=== PATIENT | male | born 1935 | race Two or more races ===

== ENCOUNTER 2019-01-06 12:21 | Inpatient (IN) ==
--- NOTE | 2019-01-06 14:11 | ECG ---
Date Performed: 01/06/2019 Time Performed: 12:34:41 PTAGE: 83 years EKG: Sinus rhythm WITH FREQUENT SUPRAVENTRICULAR PREMATURE COMPLEXES BORDERLINE LEFT AXIS DEVIATION RIGHT BUNDLE BRANC H BLOCK ABNORMAL ECG NO PREVIOUS TRACING DOCTOR: Alfredo Garces Interpretating Date/Time 01/06/2019 14:11:00
--- NOTE | 2019-01-06 14:31 | ED ---
HPI General Chief Complaint: Dizziness Stated Complaint: dizziness Time Seen by Provider: 01/06/19 14:03 History of Present Illness HPI Narrative: 83 year old man with a past medical history of HTN and diabetes who presents to the ED for evaluation of dizziness and palpitations. He is Guatemalan speaking and most of the history was given through the son's translation. Patient reports dizziness in the mornings when he gets out of bed for the last three days. He denies loss of consciousness or falls associated with the dizziness. He states he's noticed his heart racing intermittently when he is laying in bed at night. He says he's had twinges of left sided chest pain that only last a few seconds and go away. He denies any pain at this time. He denies weakness, numbness or tingling. His son put him on a pulse ox monitor last night and states it showed his heart rate up in the 130s. Patient denies any history of arrhythmias or any other cardiac history. Related Data Home Medications Medication Instructions Recorded Confirmed aspirin 81 mg PO DAILY 01/06/19 01/06/19 diphenhydramine HCl [Benadryl] 50 mg PO PRN PRN 01/06/19 01/06/19 enalapril maleate 20 mg PO DAILY 01/06/19 01/06/19 metformin 500 mg PO DAILY 01/06/19 01/06/19 Allergies Allergy/AdvReac Type Severity Reaction Status Date / Time No Known Allergies Allergy Verified 01/06/19 14:56 Review of Systems ROS: all other systems reviewed are negative [facility] Medical History Medical History Diabetes (Acute) Hypertension (Acute) Spinal stenosis (Acute) Surgical History Surgical History History of back surgery (Acute) Social History Social History Smoking Status: Never smoker How Often Do You Have a Drink Containing Alcohol: Never Recent Travel in [facility] within the Last 8 Weeks: No Recent Out of Country Travel within the Last 8 Weeks: No Immunization History Tetanus Immunization: Unsure Exam Narrative Exam Narrative: GENERAL: Well-appearing in no distress. SKIN: Focused skin assessment warm/dry. HEAD: Atraumatic. Normocephalic. EYES: Pupils equal and round. No scleral icterus. No injection or drainage. ENT: No nasal bleeding or discharge. Mucous membranes pink and moist. NECK: Trachea midline. No JVD. CARDIOVASCULAR: Irregular rate and rhythm. No murmur appreciated. RESPIRATORY: No accessory muscle use. Clear to auscultation. Breath sounds equal bilaterally. GASTROINTESTINAL: Abdomen soft, non-tender, nondistended. Hepatic and splenic margins not palpable. MUSCULOSKELETAL: No obvious deformities. No clubbing. No cyanosis. No edema. Full range of motion of the upper and lower extremities bilaterally. 2+ pulses bilaterally. NEUROLOGICAL: Awake and alert. No obvious cranial nerve deficits. Motor grossly within normal limits. Normal speech. PSYCHIATRIC: Appropriate mood and affect; insight and judgment normal. Course Initial Documented Vital Signs Temperature 98.5 F 01/06/19 12:25 Pulse Rate 103 H 01/06/19 12:25 Respiratory Rate 18 01/06/19 12:25 Blood Pressure 124/71 01/06/19 12:25 Pulse Oximetry 97 01/06/19 12:25 Last Documented Vital Signs Temperature 98.5 F 01/06/19 12:25 Pulse Rate 98 H 01/06/19 15:30 Respiratory Rate 18 01/06/19 15:32 Blood Pressure 124/71 01/06/19 12:25 Pulse Oximetry 97 01/06/19 14:11 Medical Decision Making FRANSISCO Attestation FRANSISCO supervised visit: Yes Attestation: I, Dr. Zurita, have reviewed the advance practice practitioner's documentation and am in agreement, met with the patient face to face, made the diagnosis, and the medical decision making was done by me. *My assessment and Findings: - Patient is an 83-year-old male who presents the emergency room with history of diabetes and hypertension, presents the emergency with complaints of palpitation as well as dizziness. Patient reports that he has been having episodes of dizziness in the morning when he gets up from sleep, reports the dizziness only last for 3-4 minutes and resolved on its own. Reports that he also notices dizziness at nighttime when he gets up to use the bathroom. Currently denies dizzyness. Patient reports that he is also noticed palpitations, patient with no history of A. fib with RVR. Denies any chest pain or shortness of breath. Son was concerned for possible onset of new afib. EKG is consistent with new onset afib. A cardiac workup was initiated. MDM Narrative Medical decision making narrative: 83-year-old male who presents to the ED for evaluation of palpitations. Patient was properly examined and was found to have signs and symptoms consistent with appears to be new onset atrial fib in RVR. Patient did have an episode of V. tach here that was documented. I think at this time is reasonable for the patient to be admitted for further evaluation and treatment. Patient and family agree with this. Patient was admitted to Dr. Deleon who agrees admission to his service. My attending evaluate the patient himself and agrees with plan. Medical Screen Exam Complete: Yes Emergency Medical Condition: Yes Differential Diagnosis Differential Diagnosis: Atrial fibrillation versus tachyarrhythmia versus arrhythmia versus dehydration versus dizziness Medical Records Medical records reviewed: Yes I reviewed the patient's medical records. Lab Data Lab results reviewed: Yes I reviewed the patient's lab results. Result diagrams: 01/06/19 15:08 01/06/19 15:08 Lab Results 01/06/19 01/06/19 01/06/19 Range/Units 15:08 15:08 15:08 WBC 7.2 (4.0-11.0) th/mm3 RBC 4.32 L (4.50-5.90) mil/mm3 Hgb 13.9 (13.0-17.0) gm/dL Hct 39.7 (39.0-51.0) % MCV 91.7 (80.0-100.0) fL MCH 32.2 (27.0-34.0) pg MCHC 35.1 (32.0-36.0) % RDW 14.0 (11.6-17.2) % Plt Count 228 (150-450) th/mm3 MPV 7.9 (7.0-11.0) fL Neut % (Auto) 61.7 (16.0-70.0) % Lymph % (Auto) 25.1 (9.0-44.0) % [place] % (Auto) 9.9 H (0.0-8.0) % Eos % (Auto) 2.6 (0.0-4.0) % Baso % (Auto) 0.7 (0.0-2.0) % Neut # (Auto) 4.4 (1.8-7.7) th/mm3 Lymph # (Auto) 1.8 (1.0-4.8) th/mm3 [place] # (Auto) 0.7 (0.0-0.9) th/mm3 Eos # (Auto) 0.2 (0.0-0.4) th/mm3 Baso # (Auto) 0.1 (0.0-0.2) th/mm3 WBC Differential . Differential Comment Auto diff final PT 10.5 (9.8-11.6) sec INR 1.0 Ratio APTT 25.4 (23.4-31.7) sec Sodium 138 (136-145) meq/L Potassium 4.8 (3.5-5.1) meq/L Chloride 106 (98-107) meq/L Carbon Dioxide 26.9 (21.0-32.0) meq/L Anion Gap 5 (5-15) meq/L BUN 24 H (7-18) mg/dL Creatinine 1.21 (0.60-1.30) mg/dL Estimated GFR 57 L (>89) mL/min Random Glucose 108 H (74-106) mg/dL Calcium 8.4 L (8.5-10.1) mg/dL Total Bilirubin 0.5 (0.2-1.0) mg/dL AST 20 (15-37) U/L ALT 21 (12-78) U/L Alkaline Phosphatase 60 (45-117) U/L Total Creatine Kinase 137 (39-308) U/L CK-MB (CK-2) 3.4 (0.5-3.6) ng/mL Troponin I Less than 0.02 L (0.02-0.05) ng/mL Total Protein 7.6 (6.4-8.2) g/dL Albumin 3.8 (3.4-5.0) g/dL Imaging Data Attestation: I personally reviewed and interpreted this imaging study as follows : Radiologist's impression: Chest X-Ray 01/06/19 14:56 CONCLUSION: The lungs are clear. Chest CTA 01/06/19 15:07 CONCLUSION: Slight bilateral lung base atelectasis and/or infiltrate is seen without evidence for PE. ECG Data Attestation: I personally reviewed and interpreted this ECG as follows: Interpretation: EKG shows what appears to be A. fib. No sign of RVR with ventricular rates of 99 bpm. MS interval 198 ms. Discharge Plan Discharge Disposition Patient Disposition: ED Admit(ED Internal Use Only) Discharge Order Discharge Orders: ED Use Only Admit Order (Routine); Ordered 01/06/19 Ordered By: Bo Gray Discharge Details Diagnosis: Atrial fibrillation with RVR, Dizziness Physicians Team ED Provider: Heavenly Zurita ED Midlevel Provider: Bo Gray Primary Care Provider: Primary Care MartinaiMakayla Rxs /Orders / Referrals /Forms Prescriptions: No Action metformin 500 mg Tablet 500 mg PO DAILY RF: 0 enalapril maleate 20 mg Tablet 20 mg PO DAILY RF: 0 diphenhydramine HCl [Benadryl] 25 mg Capsule 50 mg PO PRN PRN (Reason: Insomnia) RF: 0 aspirin 81 mg Tablet,Chewable 81 mg PO DAILY RF: 0 Discharge Interventions Interventions: Vital Signs Last Done: 01/06/19 14:11 Status ED Status: Admitted Patient
[2019-01-06 15:37] LABS: Baso # (Auto) 0.1 th/mm3 (0.0-0.2); Baso % (Auto) 0.7 % (0.0-2.0); Eos # (Auto) 0.2 th/mm3 (0.0-0.4); Eos % (Auto) 2.6 % (0.0-4.0); Hematocrit 39.7 % (39.0-51.0); Hemoglobin 13.9 gm/dL (13.0-17.0); Lymph # (Auto) 1.8 th/mm3 (1.0-4.8); Lymph % (Auto) 25.1 % (9.0-44.0); Mean Corpuscular HGB Conc 35.1 % (32.0-36.0); Mean Corpuscular Hemoglobin 32.2 pg (27.0-34.0); Mean Corpuscular Volume 91.7 fL (80.0-100.0); Mean Platelet Volume 7.9 fL (7.0-11.0); Mono # (Auto) 0.7 th/mm3 (0.0-0.9); Mono % (Auto) 9.9 % (0.0-8.0); Neut # (Auto) 4.4 th/mm3 (1.8-7.7); Neut % (Auto) 61.7 % (16.0-70.0); Platelet Count 228 th/mm3 (150-450); Red Blood Count 4.32 mil/mm3 (4.50-5.90); White Blood Count 7.2 th/mm3 (4.0-11.0)
[2019-01-06 15:48] LABS: Activated Partial Thrombo Time 25.4 sec (23.4-31.7); Prothrombin Time 10.5 sec (9.8-11.6)
--- NOTE | 2019-01-06 15:53 | XR ---
EXAM DATE: 01/06/2019 3:51 PM EST AGE/SEX: 83 years / Male INDICATIONS: Chest discomfort. CLINICAL DATA: This is the patient's initial encounter. Patient reports that signs and symptoms have been present for 1 day and indicates a pain score of 0/10. MEDICAL/SURGICAL HISTORY: Diabetes mellitus type II. Hypertension. None. COMPARISON: No prior exams available for comparison. FINDINGS: A single AP view of the chest demonstrates the lungs to be symmetrically aerated without evidence of mass, infiltrate or effusion. The heart is upper limits normal size. Moderate tortuosity descending t horacic aorta.. Osseous structures are intact. CONCLUSION: The lungs are clear. Electronically signed by: Okmar Molina MD Board Certified Radiologist 01/06/2019 3:52 PM EST
[2019-01-06 15:59] LABS: Alanine Aminotransferase 21 U/L (12-78); Albumin 3.8 g/dL (3.4-5.0); Anion Gap 5 meq/L (5-15); Aspartate Aminotransferase 20 U/L (15-37); Blood Urea Nitrogen 24 mg/dL (7-18); Calcium 8.4 mg/dL (8.5-10.1); Carbon Dioxide 26.9 meq/L (21.0-32.0); Chloride 106 meq/L (98-107); Glomerular Filtration Rate 57 mL/min (>89); Glucose,Random 108 mg/dL (74-106); Potassium 4.8 meq/L (3.5-5.1); Sodium 138 meq/L (136-145)
[2019-01-06 16:03] LABS: Alkaline Phosphatase 60 U/L (45-117); Creatine Kinase 137 U/L (39-308); Total Protein 7.6 g/dL (6.4-8.2)
[2019-01-06 16:15] LABS: Creatine Kinase MB 3.4 ng/mL (0.5-3.6)
--- NOTE | 2019-01-06 17:08 | CT ---
EXAM DATE: 01/06/2019 5:00 PM EST AGE/SEX: 83 years / Male INDICATIONS: Dizziness for 3 days. Elevated heart rate. CLINICAL DATA: This is the patient's initial encounter. Patient reports that signs and symptoms have been present for 3 days and indicates a pain score of 0/10. MEDICAL/SURGICAL HISTORY: Diabetes. Hypertension. Spinal stenosis. . Back surgery. RADIATION DOSE: 20.0 CTDI (mGy) COMPARISON: No prior exams available for comparison. TECHNIQUE: Volumetric scanning was performed using a multi-row detector CT scanner during bolus infu michaela of 73 ml Omnipaque 350 (iohexol) nonionic water-soluble contrast as a single exam dose. The donald a was post processed with a variety of visualization algorithms including full volume maximum intensi ty projection and sliding thin slab reformation. Using automated exposure control and adjustment of the mA and/or kV according to patient size, radiation dose was kept as low as reasonably achievable t o obtain optimal diagnostic quality images. DICOM format image data is available electronically for review and comparison. FINDINGS: Slight bibasilar atelectasis and/or infiltrate is seen. There is no evidence of PE for technique. Coronary artery calcifications are seen typically seen with coronary artery disease and clinical tae elation and evaluation is suggested. Approximate 6.8 cm simple cyst is present in visualized right ki dney with small cysts in the left kidney as well. There is evidence for prior granulomatous exposure with calcified granuloma right lung. There is no pleural effusion. No appreciable pathological adenopathy is seen within the mediastinum. CONCLUSION: Slight bilateral lung base atelectasis and/or infiltrate is seen without evidence for PE. Electronically signed by: India Davies MD Board Certified Radiologist 01/06/2019 5:07 PM EST
[2019-01-06] MEDS ORDERED: Acetaminophen 325 MG Tablet PO PRN (17:56)
[2019-01-06] MEDS ORDERED: Bisacodyl 10 MG Supp RECTAL PRN (17:56)
--- NOTE | 2019-01-06 17:56 | P.HPIM ---
History of Present Illness Primary Care Physician: No Primary Care Physician Chief Complaint: Shortness of breath, dizziness History of Present Illness: The patient is a very pleasant 83 year old man with a past medical history of HTN and diabetes who presents to the ED for evaluation of dizziness and palpitations. He is Wolof speaking and most of the history was given through the son's translation. Patient reports dizziness in the mornings when he gets out of bed for the last three days. He denies loss of consciousness or falls associated with the dizziness. He states he's noticed his heart racing intermittently when he is laying in bed at night. He says he's had twinges of left sided chest pain that only last a few seconds and go away. He denies any pain at this time. He denies weakness, numbness or tingling. His son put him on a pulse ox monitor last night and states it showed his heart rate up in the 130s. Patient denies any history of arrhythmias or any other cardiac history. Review of Systems Review of Systems: all other systems reviewed are negative [facility] Medical History Medical History Diabetes (Acute) Hypertension (Acute) Spinal stenosis (Acute) Surgical History Surgical History History of back surgery (Acute) Family History Family History Other Heart problem Social History Social History Smoking Status: Never smoker How Often Do You Have a Drink Containing Alcohol: Never Recent Travel in [facility] within the Last 8 Weeks: No Recent Out of Country Travel within the Last 8 Weeks: No Immunization History Tetanus Immunization: Unsure Medications and Allergies Allergies Allergy/AdvReac Type Severity Reaction Status Date / Time No Known Allergies Allergy Verified 01/06/19 14:56 Home Medications Medication Instructions Recorded Confirmed Type aspirin 81 mg PO DAILY 01/06/19 01/06/19 History diphenhydramine HCl [Benadryl] 50 mg PO PRN PRN 01/06/19 01/06/19 History enalapril maleate 20 mg PO DAILY 01/06/19 01/06/19 History metformin 500 mg PO DAILY 01/06/19 01/06/19 History Physical Exam Vital signs: Vital Signs 01/06/19 12:25 01/06/19 14:11 01/06/19 15:30 Temperature 98.5 F Pulse Rate 103 H 89 98 H Respiratory Rate 18 18 Blood Pressure 124/71 Pulse Oximetry 97 97 01/06/19 15:32 Temperature Pulse Rate Respiratory Rate 18 Blood Pressure Pulse Oximetry Intake & Output 01/05/19 01/06/19 01/06/19 18:59 06:59 18:59 Weight 72.575 kg Narrative: GENERAL: Very pleasant 83-year-old male, well-nourished well- developed appears in not acute distress. SKIN: Warm and dry. HEAD: Atraumatic. Normocephalic. EYES: Pupils equal and round. No scleral icterus. No injection or drainage. ENT: No nasal bleeding or discharge. Mucous membranes pink and moist. NECK: Trachea midline. No JVD. CARDIOVASCULAR: Irregular rate and rhythm. RESPIRATORY: No accessory muscle use. Clear to auscultation. Breath sounds equal bilaterally. GASTROINTESTINAL: Abdomen soft, non-tender, nondistended. Hepatic and splenic margins not palpable. MUSCULOSKELETAL: Extremities without clubbing, cyanosis, or edema. No obvious deformities. NEUROLOGICAL: Awake and alert. No obvious cranial nerve deficits. Motor grossly within normal limits. Five out of 5 muscle strength in the arms and legs. Normal speech. PSYCHIATRIC: Appropriate mood and affect; insight and judgment normal. Results Labs CBC & Chem 7: 01/06/19 15:08 01/06/19 15:08 Imaging Impressions Chest X-Ray 01/06/19 14:56 CONCLUSION: The lungs are clear. Chest CTA 01/06/19 15:07 CONCLUSION: Slight bilateral lung base atelectasis and/or infiltrate is seen without evidence for PE. Caprini VTE Risk Assessment Caprini VTE Risk Assessment: Moderate/High Risk (score >= 2) Caprini Risk Assessment Model: Point Value = 1 Point Value = 2 Point Value = 3 Point Value = 5 Age 41-60 Minor surgery BMI > 25 kg/m2 Swollen legs Varicose veins or History of unexplained or recurrent spontaneous Oral contraceptives or hormone replacement Sepsis (< 1 month) Serious lung disease, including pneumonia (< 1 month) Abnormal pulmonary function Acute myocardial infarction Congestive heart failure (< 1 month) History of inflammatory bowel disease Medical patient at bed rest Age 61-74 Arthroscopic surgery Major open surgery (> 45 min) Laparoscopic surgery (> 45 min) Malignancy Confined to bed (> 72 hours) Immobilizing plaster cast Central venous access Age >= 75 History of VTE Family history of VTE Factor V Leiden Prothrombin [id number] Lupus anticoagulant Anticardiolipin antibodies Elevated serum homocysteine Heparin-induced thrombocytopenia Other congenital or acquired thrombophilia Stroke (< 1 month) Elective arthroplasty Hip, pelvis, or leg fracture Acute spinal cord injury (< 1 month) Prophylaxis Regimen: Total Risk Factor Score Risk Level Prophylaxis Regimen 0-1 Low Early ambulation 2 Moderate Order ONE of the following: *Sequential Compression Device (SCD) *Heparin 5000 units SQ BID 3-4 Higher Order ONE of the following medications: *Heparin 5000 units SQ TID *Enoxaparin/Lovenox 40 mg SQ daily (WT < 150 kg, CrCl > 30 mL/min) *Enoxaparin/Lovenox 30 mg SQ daily (WT < 150 kg, CrCl > 10-29 mL/min) *Enoxaparin/Lovenox 30 mg SQ BID (WT < 150 kg, CrCl > 30 mL/min) AND/OR *Sequential Compression Device (SCD) 5 or more Highest Order ONE of the following medications: *Heparin 5000 units SQ TID (Preferred with Epidurals) *Enoxaparin/Lovenox 40 mg SQ daily (WT < 150 kg, CrCl > 30 mL/min) *Enoxaparin/Lovenox 30 mg SQ daily (WT < 150 kg, CrCl > 10-29 mL/min) *Enoxaparin/Lovenox 30 mg SQ BID (WT < 150 kg, CrCl > 30 mL/min) AND *Sequential Compression Device (SCD) Assessment and Plan Plan Very pleasant 83-year-old male with past medical history of hypertension diabetes who presented with dizziness and palpitations A. fib with RVR, new onset History of hypertension History of diabetes mellitus type 2 Start metoprolol 25 mg twice daily Monitor on telemetry Do 2D echo Check TSH Consult cardiology DC Benadryl might cause arrhythmia, discussed with the patient Restart home medications as appropriate Hold metformin for now have patient on insulin while inpatient can restart metformin as outpatient. Accu-Cheks DVT prophylaxis SCDs/teds/Lovenox Discussed with the patient, family very supportive of bedside his son, ED physician
[2019-01-06] MEDS ORDERED: Dextrose 50% in Water 50 ML Vial IV.PUSH PRN (18:01)
[2019-01-06 18:37] LABS: Thyroid Stimulating Hormone 0.736 uIU/mL (0.358-3.740)
[2019-01-06] MEDS: Enoxaparin Inj 40 MG/0.4 ML Syringe SQ SCH (18:49)
[2019-01-06] MEDS: Insulin NovoLOG Aspart Correctional Sugar Inj SQ SCH (21:23)
[2019-01-06] MEDS: Senna/Docusate Sodium 8.6/50 MG Tablet PO SCH (21:37)
[2019-01-07] MEDS: Insulin NovoLOG Aspart Correctional Sugar Inj SQ SCH ×4 (08:25→21:46)
[2019-01-07] MEDS ORDERED: Metoprolol Tartrate 25 MG Tablet PO SCH (09:00)
[2019-01-07] MEDS ORDERED: Influenza (Quadrivalent) Vaccine 0.5 ML Syringe IM ONE (09:00)
[2019-01-07] MEDS: Senna/Docusate Sodium 8.6/50 MG Tablet PO SCH ×2 (09:01→21:45)
[2019-01-07 10:43] LABS: Baso % (Auto) 0.5 % (0.0-2.0); Eos # (Auto) 0.2 th/mm3 (0.0-0.4); Eos % (Auto) 2.8 % (0.0-4.0); Hematocrit 41.6 % (39.0-51.0); Hemoglobin 14.2 gm/dL (13.0-17.0); Lymph # (Auto) 1.6 th/mm3 (1.0-4.8); Lymph % (Auto) 25.3 % (9.0-44.0); Mean Corpuscular Hemoglobin 31.8 pg (27.0-34.0); Mean Corpuscular Volume 93.3 fL (80.0-100.0); Mean Platelet Volume 8.3 fL (7.0-11.0); Mono # (Auto) 0.6 th/mm3 (0.0-0.9); Mono % (Auto) 9.8 % (0.0-8.0); Neut # (Auto) 3.8 th/mm3 (1.8-7.7); Neut % (Auto) 61.6 % (16.0-70.0); Platelet Count 220 th/mm3 (150-450); Red Blood Count 4.46 mil/mm3 (4.50-5.90); White Blood Count 6.2 th/mm3 (4.0-11.0)
[2019-01-07 11:00] LABS: Calcium 8.6 mg/dL (8.5-10.1); Carbon Dioxide 22.5 meq/L (21.0-32.0); Potassium 4.6 meq/L (3.5-5.1)
[2019-01-07 12:53] LABS: Hemoglobin A1c 6.2 % (4.3-6.0)
--- NOTE | 2019-01-07 13:06 | ECHRPT ---
Indication: Atrial Fib and Flutter CONCLUSIONS Normal left ventricular size. Mild concentric left ventricular hypertrophy. The left ventricular sy stolic function is normal with an estimated ejection fraction in the range of 55-60%. No definite regional wall motion abnormalities are present. Trace mitral valve regurgitation. Trileaflet aortic valve. Mild aortic valve sclerosis is present. Mild aortic valve regurgitation. There is trace tricuspid valve regurgitation. The estimated pulmonary arterial pressure is 41 mmHg. The left atrial size is [id number] dilated. BP: / HR: Rhythm: MEASUREMENTS (Male / Female) Normal Values Technical Quality:Fair 2D ECHO LV Diastolic Diameter PLAX 5.6 cm 4.2 - 5.9 / 3.9 - 5.3 cm LV Systolic Diameter PLAX 3.3 cm IVS Diastolic Thickness 1.1 cm 0.6 - 1.0 / 0.6 - 0.9 cm LVPW Diastolic Thickness 1.1 cm 0.6 - 1.0 / 0.6 - 0.9 cm LV Relative Wall Thickness 0.4 RV Internal Dim ED PLAX 2.8 cm LVOT Diameter 1.9 cm Aortic Root Diameter 3.5 cm LA Systolic Diameter LX 5.0 cm 3.0 - 4.0 / 2.7 - 3.8 cm DOPPLER AV Peak Velocity 152.0 cm/s AV Peak Gradient 9.2 mmHg AI Peak Velocity 341.5 cm/s AI Peak Gradient 46.6 mmHg AI Pressure Half Time 589.5 ms LVOT Peak Velocity 111.0 cm/s LVOT Peak Gradient 4.9 mmHg AV Area Cont Eq pk 2.1 cm Mitral E Point Velocity 107.0 cm/s LV E' Lateral Velocity 13.3 cm/s Mitral E to LV E' Lateral Ratio 8.0 LV E' Septal Velocity 7.2 cm/s Mitral E to LV E' Septal Ratio 14.8 TR Peak Velocity 276.0 cm/s TR Peak Gradient 30.5 mmHg Right Atrial Pressure 10.0 mmHg Pulmonary Artery Systolic Pressu 40.5 mmHg Right Ventricular Systolic Press 40.5 mmHg PV Peak Velocity 95.0 cm/s PV Peak Gradient 3.6 mmHg FINDINGS LEFT VENTRICLE Normal left ventricular size. Mild concentric left ventricular hypertrophy. The left ventricular systolic function is normal with an estimated ejection fraction in the range of 55-60%. No definite regional wall motion abnormalities are present. RIGHT VENTRICLE Normal right ventricular size and systolic function. LEFT ATRIUM The left atrial size is [id number] dilated. RIGHT ATRIUM The right atrial size is normal. ATRIAL SEPTUM Normal atrial septal thickness without atrial level shunting by limited color doppler interrogation. AORTA The aortic root and proximal ascending aorta are normal in size on limited imaging. MITRAL VALVE Trace mitral valve regurgitation. AORTIC VALVE Trileaflet aortic valve. Mild aortic valve sclerosis is present. Mild aortic valve regurgitation. TRICUSPID VALVE There is trace tricuspid valve regurgitation. The estimated pulmonary arterial pressure is 41 mmHg. PULMONARY VALVE The pulmonary valve is not well visualized. VESSELS The inferior vena cava is normal in size. PERICARDIUM No pericardial effusion. Gerry Freitas MD (Electronically Signed) Final Date:07 January 2019 13:05
--- NOTE | 2019-01-07 14:23 | MB ---
cc: Leland Mora MD DATE: 01/07/2019 HISTORY OF PRESENT ILLNESS: This patient is a very pleasant 82-year-old gentleman, recently moved here from [facility], does not speak Kazakh. His son provides some of his history. Apparently, the patient had a perception of tachycardia, palpitations, with heart rates around 130, had a near-syncopal event. Otherwise, he feels well. His son says he has had several other near-syncopal events in his lifetime. The patient notes no loss of weight or loss of appetite. Denies chest pain, shortness of breath. Normally, he is active. Denies GI or bleeding, PND, or orthopnea. PAST MEDICAL HISTORY: Per history of present illness. He has a history of diabetes, hypertension, spinal stenosis, back surgery. ALLERGIES: NONE. SOCIAL HISTORY: Denies tobacco or alcohol use. MEDICATIONS IN THE HOSPITAL: 1. Aspirin 81 mg a day. 2. Vasotec 20 mg daily. 3. Lovenox 40 mg subcutaneous every 24 hours. 4. Insulin. 5. Metoprolol 25 mg b.i.d. PHYSICAL EXAMINATION: VITAL SIGNS: Temperature 98, pulse 68, respiratory rate 18, blood pressure 124/66, sats 99% on room air. GENERAL: He is alert and oriented x3, in no acute distress. NECK: Supple. No JVD. No bruit. CARDIOVASCULAR: S1, S2. No murmurs, rubs or gallops. LUNGS: Clear to auscultation bilaterally. ABDOMEN: Soft, nontender, nondistended with positive bowel sounds. EXTREMITIES: Lower extremity edema. LABORATORY DATA: EKG shows a normal sinus rhythm at 99 beats per minute, right bundle branch block, PACs. Chest CTA: Slight bilateral lung base atelectasis and/or infiltrate is seen without evidence for PE. Echocardiogram done today: EF 55-60%, trace MR, mild AI, aortic valve sclerosis, PA systolic pressure 41 mmHg, mild to moderate left atrial enlargement. Aortic valve peak gradient 9.2 mmHg. LABORATORY DATA: White count 6.2, hemoglobin 14.2, hematocrit 41.6, platelet count 220,000. INR 1. Sodium 137, potassium 4.6, chloride 106, bicarbonate 20.5, BUN 21, creatinine 1.11, glucose 107. DIAGNOSES: 1. Near syncope. 2. Hypertension. 3. Diabetes. 4. Palpitations. 5. Mild aortic valve regurgitation. DISCUSSION: At this point in time, his workup from a cardiovascular standpoint for his near-syncopal event is negative. I do think he should have carotid ultrasound. Continue telemetry monitoring and check orthostatics. MD SOTERO Mora/sb , 01:27 PM , 01:36 PM
--- NOTE | 2019-01-07 14:59 | P.PNIM ---
Physical Exam Vital signs: Vital Signs 01/06/19 15:30 01/06/19 15:32 01/06/19 18:44 Temperature Pulse Rate 98 H 87 Respiratory Rate 18 18 Blood Pressure 140/85 Pulse Oximetry 99 01/06/19 19:59 01/06/19 21:35 01/06/19 23:20 Temperature 97.1 F L 98 F Pulse Rate 79 92 H 94 H Respiratory Rate 17 16 Blood Pressure 133/75 115/54 L Pulse Oximetry 95 94 L 01/07/19 00:20 01/07/19 03:35 01/07/19 08:00 Temperature 98.0 F 97.7 F Pulse Rate 86 77 88 Respiratory Rate 17 18 Blood Pressure 130/60 150/65 H Pulse Oximetry 95 99 01/07/19 12:00 Temperature 98 F Pulse Rate 64 Respiratory Rate 18 Blood Pressure 124/66 Pulse Oximetry 99 Intake & Output 01/06/19 01/07/19 01/07/19 18:59 06:59 18:59 Intake Total 120 / 120 Output Total 275 / 275 Balance -155 / -155 Weight 72.575 kg 80.5 kg Intake: Oral 120 / 120 Output: Urine 275 / 275 Other: Date of Last Bowel Movement 01/05/19 01/07/19 # Bowel Movements 0 Weight On Admission 80.5 kg Narrative: GENERAL: Very pleasant 83-year-old male, well-nourished well- developed appears in not acute distress. CARDIOVASCULAR: regular rate and rhythm. RESPIRATORY: No accessory muscle use. Clear to auscultation. Breath sounds equal bilaterally. GASTROINTESTINAL: Abdomen soft, non-tender, nondistended. Normoactive bowel sounds MUSCULOSKELETAL: Extremities without clubbing, cyanosis, or edema. No obvious deformities. NEUROLOGICAL: Awake and alert. Motor grossly within normal limits. Five out of 5 muscle strength in the arms and legs. Normal speech. Results Labs CBC & Chem 7: 01/07/19 09:17 01/07/19 09:17 Imaging Imaging: Impressions Chest X-Ray 01/06/19 14:56 CONCLUSION: The lungs are clear. Chest CTA 01/06/19 15:07 CONCLUSION: Slight bilateral lung base atelectasis and/or infiltrate is seen without evidence for PE. 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 Progress Note: Quality VTE Deep Vein Thrombosis/Pulmonary Embolism Present on Admission: No
[2019-01-07] MEDS: Enoxaparin Inj 40 MG/0.4 ML Syringe SQ SCH (17:41)
[2019-01-07] MEDS: Metoprolol Tartrate 25 MG Tablet PO SCH (21:45)
[2019-01-08] MEDS: Insulin NovoLOG Aspart Correctional Sugar Inj SQ SCH ×4 (07:50→20:39)
[2019-01-08] MEDS: Metoprolol Tartrate 25 MG Tablet PO SCH ×2 (09:29→20:38)
[2019-01-08] MEDS: Senna/Docusate Sodium 8.6/50 MG Tablet PO SCH ×2 (09:29→20:38)
--- NOTE | 2019-01-08 12:17 | P.PNIM ---
Subjective Interval history: Patient denies any dizziness. No palpitations. No shortness of breath or chest pain. Wants to go home. Physical Exam Vital signs: Vital Signs 01/07/19 16:00 01/07/19 20:00 01/07/19 23:52 Temperature 98 F 98.3 F Pulse Rate 66 68 64 Respiratory Rate 18 16 Blood Pressure 116/58 L 132/63 Pulse Oximetry 96 95 01/08/19 00:00 01/08/19 04:00 01/08/19 08:00 Temperature 97.8 F 97.8 F Pulse Rate 89 73 86 Respiratory Rate 16 16 Blood Pressure 134/82 105/57 L Pulse Oximetry 93 L 98 01/08/19 08:30 Temperature 98.1 F Pulse Rate 87 Respiratory Rate 16 Blood Pressure 145/60 H Pulse Oximetry 96 Intake & Output 01/07/19 01/08/19 01/08/19 18:59 06:59 18:59 Intake Total 120 / 120 480 / 480 Output Total 275 / 275 Balance -155 / -155 480 / 480 Intake: Oral 120 / 120 480 / 480 Output: Urine 275 / 275 Other: # Voids 1 Date of Last Bowel Movement 01/07/19 01/07/19 01/07/19 # Bowel Movements 0 Narrative: GENERAL: Very pleasant 83-year-old male, well-nourished well- developed appears in not acute distress. CARDIOVASCULAR: regular rate and rhythm. RESPIRATORY:. Clear to auscultation. Breath sounds equal bilaterally. GASTROINTESTINAL: Abdomen soft, non-tender, nondistended. Normoactive bowel sounds MUSCULOSKELETAL: Extremities without clubbing, cyanosis, or edema. No obvious deformities. NEUROLOGICAL: Awake and alert. Motor grossly within normal limits. Five out of 5 muscle strength in the arms and legs. Normal speech. 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 daily Enalapril 10 mg p.o. daily Stop home Benadryl Follow-up with primary care physician Progress Note: Quality VTE Deep Vein Thrombosis/Pulmonary Embolism Present on Admission: No
--- NOTE | 2019-01-08 15:20 | US ---
EXAM DATE: 01/08/2019 2:48 PM EST AGE/SEX: 84 years / Male INDICATIONS: Syncope. CLINICAL DATA: This is the patient's initial encounter. Patient reports that signs and symptoms have been present for 1 day and indicates a pain score of 0/10. MEDICAL/SURGICAL HISTORY: Diabetes. Hypertension. Spinal stenosis. . Back surgery. COMPARISON: No prior exams available for comparison. VELOCITY PARAMETERS: ICA/CCA Ratio: Right 2.6 , Left 0.9 ICA: Right 77 cm/sec, Left 98 cm/sec CCA: Right 77 cm/sec, Left 114 cm/sec ECA: Right 107 cm/sec, Left 98 cm/sec Vertebral: Right 69 cm/sec antegrade, Left 41 cm/sec antegrade FINDINGS: Right Carotid: Mild to moderate arteriosclerotic plaque is visualized.The waveforms are within dom l limits. Left Carotid: Mild to moderate arteriosclerotic plaque is visualized. The waveforms are within dom l limits. Other: None. CONCLUSION: Mild to moderate visible plaque formation bilaterally. Elevated PSV ratio on the right side could ind icate a moderate stenosis. Electronically signed by: Kan Carreno MD Board Certified Radiologist 01/08/2019 3:18 PM EST
--- NOTE | 2019-01-08 17:06 | CT ---
EXAM DATE: 01/08/2019 5:00 PM EST AGE/SEX: 84 years / Male INDICATIONS: Abnormal ultrasound. CLINICAL DATA: This is the patient's initial encounter. Patient reports that signs and symptoms have been present for 2 days and indicates a pain score of 0/10. MEDICAL/SURGICAL HISTORY: Diabetes. Hypertension. Spinal stenosis. . Back RADIATION DOSE: 28.47 CTDI (mGy) COMPARISON: No prior exams available for comparison. TECHNIQUE: Volumetric scanning was performed using a multirow detector CT scanner during bolus infus ion of 100ml ml Omnipaque 350 (iohexol) nonionic water-soluble contrast as a single exam dose. The data was postprocessed with a variety of visualization algorithms including full-volume maximum inte nsity projection, multiplanar sliding thin-slab reformation, curved-planar reformation, and surface-r endering techniques. Using automated exposure control and adjustment of the mA and/or kV according t o patient size, radiation dose was kept as low as reasonably achievable to obtain optimal diagnostic quality images. DICOM format image data is available electronically for review and comparison. Percent stenosis is calculated using the diameter of the stenotic region over the diameter of the nor mal distal internal carotid artery. FINDINGS: There is mild atherosclerotic plaque at the left carotid bifurcation. There is no hemodynamically sig nificant stenosis in the common or internal carotid arteries bilaterally. The great vessel origins ar e patent. Both vertebral arteries are patent. CONCLUSION: 1. Examination within normal limits for age. No carotid stenosis. Electronically signed by: Kan Carreno MD Board Certified Radiologist 01/08/2019 5:05 PM EST
[2019-01-08] MEDS: Enoxaparin Inj 40 MG/0.4 ML Syringe SQ SCH (18:40)
[2019-01-09 05:20] VITALS: RESP 18
[2019-01-09] MEDS: Insulin NovoLOG Aspart Correctional Sugar Inj SQ SCH ×2 (08:08→15:25)
[2019-01-09 08:46] VITALS: TEMP 98.2
[2019-01-09] MEDS: Metoprolol Tartrate 25 MG Tablet PO SCH (09:30)
[2019-01-09] MEDS: Senna/Docusate Sodium 8.6/50 MG Tablet PO SCH (09:30)
[2019-01-09 13:48] VITALS: BP 110/64; O2SAT 96
--- NOTE | 2019-01-09 15:13 | P.PNIM ---
Subjective Interval history: No further dizziness, no palpitations. No chest pain. Feels better. Wants to go home. Physical Exam Vital signs: Vital Signs 01/08/19 16:00 01/08/19 19:05 01/08/19 20:00 Temperature 98.5 F Pulse Rate 97 H 80 115 H Respiratory Rate 18 Blood Pressure 128/56 L Pulse Oximetry 97 01/08/19 23:00 01/09/19 00:00 01/09/19 03:10 Temperature 97.7 F 97.8 F Pulse Rate 66 63 86 Respiratory Rate 22 18 Blood Pressure 138/88 125/65 Pulse Oximetry 97 97 01/09/19 04:02 01/09/19 08:00 01/09/19 12:00 Temperature 98.2 F 98.2 F Pulse Rate 70 77 90 Respiratory Rate 18 18 Blood Pressure 132/67 110/64 Pulse Oximetry 95 96 Intake & Output 01/08/19 01/09/19 01/09/19 18:59 06:59 18:59 Intake Total 480 / 480 720 / 720 Output Total 275 / 275 Balance 205 / 205 720 / 720 Weight 80.6 kg Intake: Oral 480 / 480 720 / 720 Output: Urine 275 / 275 Other: # Voids 1 6 Date of Last Bowel Movement 01/07/19 01/08/19 01/08/19 # Bowel Movements 0 1 Narrative: GENERAL: Very pleasant 83-year-old male, well-nourished well- developed appears in not acute distress. CARDIOVASCULAR: Irregular rate and rhythm RESPIRATORY:. Clear to auscultation. Breath sounds equal bilaterally. GASTROINTESTINAL: Abdomen soft, non-tender, nondistended. Normoactive bowel sounds MUSCULOSKELETAL: Extremities without clubbing, cyanosis, or edema. No obvious deformities. NEUROLOGICAL: Awake and alert to person place and time. Results Labs CBC & Chem 7: 01/07/19 09:17 01/07/19 09:17 Imaging Imaging: Impressions Carotid Doppler Study 01/08/19 00:00 CONCLUSION: Mild to moderate visible plaque formation bilaterally. Elevated PSV ratio on the right side could indicate a moderate stenosis. Neck CTA 01/08/19 00:00 CONCLUSION: 1. Examination within normal limits for age. No carotid stenosis. Assessment and Plan Plan 83-year-old male with hypertension, diabetes mellitus who presented with dizziness and palpitations Paroxysmal atrial fibrillation Dizziness with presyncope Palpitations with initial sinus rhythm with PAC on presenting EKG and current telemetry; Patient does have paroxysmal atrial fibrillation; repeat EKG discussed with Dr. Mora cardiology who cleared the patient for discharge. He will need anticoagulation. Appreciate cardiology evaluation and 2D echo obtained which showed normal EF Carotid ultrasound shows possible right moderate stenosis, follow-up CTA neck shows no stenosis ekg monitor to rule out other arrhythmias Stop home Benadryl Check orthostatic blood pressure which is negative Patient has chads score 3 with a 5.9% risk of event if no anticoagulation, will start Xarelto. Discussed with son; patient does have lumbar stenosis and ambulate with a assistance of a walker but for now we will try Xarelto, if unable to tolerate will switch back to aspirin. He will follow-up with primary care physician for further discussion. Beta gina added to regimen and will decrease home enalapril dose to 10 mg Hypertensioncurrently on enalapril, metoprolol added. Diabetes mellitus, type II, [id number], continue blood sugar monitoring with sliding scale insulin; resume metformin upon discharge Discharge patient to home Condition on discharge: Improved Diabetic diet as tolerated Ad Sujatha activity Rx written: Metoprolol 25 mg p.o. daily Enalapril 10 mg p.o. daily Xarelto 20 minutes p.o. daily Stop home Benadryl Follow-up with primary care physician Discussed with son who is RN at bedside. Progress Note: Quality VTE Deep Vein Thrombosis/Pulmonary Embolism Present on Admission: No
--- NOTE | 2019-01-09 15:26 | ECG ---
Date Performed: 01/08/2019 Time Performed: 12:32:08 PTAGE: 84 years EKG: ATRIAL FLUTTER/TACHYCARDIA BORDERLINE LEFT AXIS DEVIATION RIGHT BUNDLE BRANCH BLOCK ABNORMA L ECG Since PREVIOUS TRACING , no significant change noted PREVIOUS TRACIN01/06/2019 12.34 DOCTOR: Dereje William Interpretating Date/Time 01/09/2019 15:25:38
--- NOTE | 2019-01-09 15:29 | P.DS ---
DS: Providers Date of admission: 01/06/19 18:10 Primary care physician: No Primary Care Physician Consults: 01/06/19 18:01 Consult to Cardiology Routine Consulting Provider: Leland Mora Does the patient have a General Assignment Reporter who follows them?: No Preferred Machine Coremaker:: Publications Inspector Physician Reason for Consultation: new Afib with RVR Spoke with:: added to list Date Notified:: 01/06/19 Time Notified:: 18:22 Comments:: spoke to Dr Mora 0814 hrs - ML Ordering Provider: REJI Brief History from admission: The patient is a very pleasant 83 year old man with a past medical history of HTN and diabetes who presents to the ED for evaluation of dizziness and palpitations. He is Maced[place] speaking and most of the history was given through the son's translation. Patient reports dizziness in the mornings when he gets out of bed for the last three days. He denies loss of consciousness or falls associated with the dizziness. He states he's noticed his heart racing intermittently when he is laying in bed at night. He says he's had twinges of left sided chest pain that only last a few seconds and go away. He denies any pain at this time. He denies weakness, numbness or tingling. His son put him on a pulse ox monitor last night and states it showed his heart rate up in the 130s. Patient denies any history of arrhythmias or any other cardiac history. DS: Diagnosis Discharge Diagnosis (1) Atrial fibrillation with RVR: Status: Acute Diagnosis: Principal (2) Dizziness: Status: Acute Diagnosis: Principal DS: Summary 84-year-old male with a history of cgu-[id number] diabetes mellitus, hypertension was admitted for suspected atrial fibrillation with rapid ventricular rate and dizziness. He was placed on beta-gina metoprolol twice daily, licensed appraiser. Cardiology, Dr. Mora was consulted who initially felt patient was in normal sinus rhythm however cardiac monitoring and repeat EKG does show some atrial fibrillation paroxysmally. His chads score was 3 due to history of hypertension diabetes and was recommended that he start on anticoagulation Xarelto in addition to beta-gina. He does have history of lumbar stenosis and ambulates with walker. I discussed with his son at bedside who is also RN who has agreed to start the patient on Xarelto. If unable to tolerate anticoagulation, recommend to switch back to his aspirin. 2D echo was obtained that showed a EF of 55-60% with normal ventricular size. Carotid ultrasound shows moderate right stenosis, however follow-up CTA neck showed no stenosis. At this time, we will transition the patient home with outpatient follow with primary care physician. Due to starting metoprolol his home enalapril was decreased from 20 mg to 10 mg. Time Spent with Patient Total time spent providing and/or coordinating discharge services: Less than 30 minutes Quality: VTE Deep Vein Thrombosis/Pulmonary Embolism Present on Admission: No Exam Narrative Exam Narrative: GENERAL: This is a well-nourished, well-developed patient, in no apparent distress. CARDIOVASCULAR: Irregular rhythm regular rate RESPIRATORY: Clear to auscultation. Breath sounds equal bilaterally. No wheezes , rales, or rhonchi. GASTROINTESTINAL: Abdomen soft, non-tender, nondistended. Normal active bowel sounds MUSCULOSKELETAL: Extremities without clubbing, cyanosis, or edema. NEURO: Alert & Oriented x3 to person, place, time. Moves all ext x4 Results Labs on day of discharge: Labs from last 24 hours 01/09/19 01/09/19 01/08/19 12:50 08:07 19:34 POC Glucose 136 H 104 203 H 01/08/19 17:35 POC Glucose 90 Impressions ITS Impressions Chest X-Ray 01/06/19 14:56 CONCLUSION: The lungs are clear. Chest CTA 01/06/19 15:07 CONCLUSION: Slight bilateral lung base atelectasis and/or infiltrate is seen without evidence for PE. Carotid Doppler Study 01/08/19 00:00 CONCLUSION: Mild to moderate visible plaque formation bilaterally. Elevated PSV ratio on the right side could indicate a moderate stenosis. Neck CTA 01/08/19 00:00 CONCLUSION: 1. Examination within normal limits for age. No carotid stenosis. Discharge Plan Discharge Disposition Patient Disposition: Discharge Home Discharge Condition Condition: Good Discharge Order Discharge Orders: Discharge Order (Routine); Ordered 01/08/19 Ordered By: Yasmin Paredes Physicians Team Primary Care Provider: Primary Care Martinai,Makayla Attending Provider: Yasmin Paredes Other Providers: Leland Mora Rxs /Orders / Referrals /Forms Prescriptions: New enalapril maleate 10 mg Tablet 10 mg PO DAILY Qty: 30 RF: 0 metoprolol tartrate 25 mg Tablet 25 mg PO BID Qty: 60 RF: 0 rivaroxaban [Xarelto] 20 mg Tablet 20 mg PO DAILY Qty: 30 RF: 0 Continue metformin 500 mg Tablet 500 mg PO DAILY RF: 0 Discontinued enalapril maleate 20 mg Tablet 20 mg PO DAILY RF: 0 diphenhydramine HCl [Benadryl] 25 mg Capsule 50 mg PO PRN PRN (Reason: Insomnia) RF: 0 aspirin 81 mg Tablet,Chewable 81 mg PO DAILY RF: 0 Referrals: Primary Care Provider [Outside] - See Instructions ( Please call the physician's office to book the appointment to be seen within 1 week. OFFICE CLOSED CALL FOR A FOLLOW UP APPIONTMENT) Primary Care Makayla Archer [Primary Care Provider] - See Instructions (CALL [facility] FOR A FOLLOW UP APPIONTMENT AT [phone] (NEED MEDICAL RECORD INFORMATION)) Discharge Instructions Patient Printed Instructions: Metoprolol (By mouth), Enalapril (By mouth), Rivaroxaban (By mouth), A-fib (Atrial Fibrillation) (DC), Dizziness (GEN) Additional Instructions: hold metformin for 48 hours and then resume on 01/11 Post Discharge Care Plan Care Plan Goals: Your Health Problems: Goals to Promote Your Health: * To prevent worsening of your condition * To maintain your health at the optimal level Directions to Meet Your Goals: * Take your medications as prescribed * Follow your dietary instruction * Follow activity as directed * Keep your appointments as scheduled * Take your immunizations and boosters as scheduled * If your symptoms worsen call your PCP * If no PCP go to Urgent Care or Emergency Room Smoking is dangerous to your health. Avoid second hand smoke. You may reach the 24-hour crisis hotline for domestic abuse at . Status ED Status: Left Department
[2019-01-09] MEDS ORDERED: Rivaroxaban 20 MG Tablet PO SCH (16:00)
[2019-01-09 19:26] VITALS: PULSE 63
== END 2019-01-09 16:39 | disposition home or self-care (01) | DRG 310 ==
LOC: NEPE 12:21 → NEDA 18:10 → N04 20:02
PROVIDERS: ADMIT Family Medicine; ATTEND Family Medicine
DX: Z23 Encounter for immunization; E11.9 Type 2 diabetes mellitus without complications; I10 Essential (primary) hypertension; I48.0 Paroxysmal atrial fibrillation; I35.1 Nonrheumatic aortic (valve) insufficiency; R55 Syncope and collapse; Z79.84 Long term (current) use of oral hypoglycemic drugs; M48.061 Spinal stenosis, lumbar region without neurogenic claudication; I49.3 Ventricular premature depolarization
CPT/HCPCS: 70498; 71010; 71045; 71275; 80048; 80053; 82550; 82552; 82948; 82962; 83036; 84443; 84484; 85025; 85610; 85730; 90658; 90686; 93005; 93306; 93880; 97162; 99285; J1650; J1815; Q2038; Q9967